=== PATIENT | male | born 1945 | race Caucasian/White ===

== ENCOUNTER → 2017-02-06 | Outpatient (CLI) | payer OTHER ==
[~2017-02-06] VITALS: Ht 177.8 cm; Wt 103.9 kg
[~2017-02-06] MED LIST: AMLH550 PO; ANT25 PO; ASPEC81 PO; CALC500C70 PO; CALCIUM+D3; EXCEDRINE; IBUP-103 PO; OMEG10007 PO; POTA10CA28 PO; SIMV20TA2 PO; ZFRODT4 SL; ZNTT/150 PO
[2017-02-06 12:34] VITALS: BP 129/85; PULSE 79; Ht 177.8 cm; Wt 103.9 kg
== END | disposition home or self-care (01) ==
LOC: C.NEUR 12:05
PROVIDERS: ATTEND Internal Medicine Pulmonary Disease
DX: R06.83 Snoring (principal); R53.83 Other fatigue; E03.9 Hypothyroidism, unspecified; I10 Essential (primary) hypertension

== ENCOUNTER → 2017-02-10 | Outpatient (CLI) | payer OTHER ==
--- NOTE | 2017-02-11 05:35 | PAP/PSG TECHNICIAN REPORT ---
[facility] [address] Landscape Photographer Polysomnogram Report Study name: None Report date: 02/11/2017 Study date: 02/10/2017 Referring Physician: Sid Parmar M.D. Name: MASTER BERNY Interpreting Physician: Sid Parmar M.D. Date of : 1945 Landscape Photographer: Bessie Flores RPSGT. Sex: Male Age: 71 StudyType: PSG Weight: 229 lbs Height: 71 years, Height 5' 10" Neck Circum:19inches BMI: 32.85 Medications: Aleve, Amiloride-HTCZ 5-50mg, ASA 81mg, Calcium, Exedrin, Fish Oil, HM Ibuprofen 200mg, Levoxul 88mcg, Potassium Chloride Er 20MEQ, Raniyidine HCl 150mg, Simvastatin 20mg Patient History Study started on room air with no ETCO2 monitoring in room #8. 71 yr old male here tonight for a diagnostic psg. He has EDS and he thinks that he may snore. He has gained weight since he quit smoking one year ago. His ESS=3/24. Neck circ=19inches. Parameters Monitored NPSG: E1-M2, E2-M1, Fp1-M2, Fp2-M1, F3-M2, F4-M2, F4-M1, C3-M2, C4-M2, C4-M1, O1-M2, O2-M2, O2-M1, T3-M2, T4-M1, P3-M2, P4-M1, CHIN1, CHIN2, HR, EKG, Legs, PFLOW, SNOR, FLOW, CFLOW, Tidal Volume, THOR, ABDO, SpO2, PLTH, CPRESS, ETCO2 Wave, ETCO2, pH Sleep Architecture Sleep Stages Time at Lights Off 9:18:53 PM STAGES Time (min.) TST (%) Time at Lights On 5:24:53 AM Wake 214.5 -- Total Recording Time (TRT) 486.50 min. N1 18.5 7 Total Sleep Period (TSP) 434.0 min. N2 163.0 60 Total Sleep Time (TST) 271.5min. N3 61.0 22 Awake Time 215.0 min. REM 29.0 11 Wake after Sleep Onset 178.5 min. Sleep Efficiency (SE) 56 % Sleep Onset Latency (CRISTINO) 36.0 min. Number of Stage 1 Shifts None Awakenings 19 Stage Changes 73 Number of REM periods 8 REM 29.0 11 REM Latency 113.0 min. NREM 242.5 89 Body Position Analysis Supine Right Left Side Prone Vertical Total Sleep Time (min.) 4.3 271.5 0.0 271.50 0.0 0.0 Total Sleep Time (%) 0% 100% 0% 100 0% N/A% Total Sleep Time REM (min.) 0.0 29.0 0.0 None 0.0 0.0 Total Sleep Time NREM (min.) 0.0 242.5 0.0 None 0.0 0.0 Intermittent Wake (min.) 4.3 210.2 0.0 None 0.0 0.0 Total Sleep Period (%) 0% None None None None None Arousals Myoclonus (PLM) * Events Count Index Events Count Index Spontaneous 8 2 Events Awake (PLMW) 155 43.4 Respiratory 4 1.1 Events Asleep w/ Arousal (PLMA) 6 1.3 PLM 6 1 Events Asleep w/o Arousal (PLMS) 31 6.9 Snoring 10 2 Total Asleep 37 8.2 Total 28 6 Total 192 24 Respiratory Analysis * CA OA MA CH H RERA Total Count 0 2 0 0 14 1 16 Index 0.0 0.4 0.0 0 3.1 0 3.8 Mean Duration 0.0 25.6 0.0 0.00 24.0 21.5 24.0 Longest Duration 0.0 36.5 0.0 0.00 0.0 21.5 53.9 Respiratory Event Summary Total Supine ~Supine Right Left Prone REM NREM Apneas Count 2 N/A 2 2 N/A N/A 1 1 Index 0.4 N/A 0 0.4 N/A N/A 2 0 Hypopneas (4% Desat) Count 14 N/A 14 14 N/A N/A 8 6 Index 3.1 N/A 3 3.1 N/A N/A 16.6 1.5 Apneas & All Hypopneas Count 16 N/A 16 16 N/A N/A 9 7 Index 3.5 N/A 4 4 N/A N/A 18.6 1.7 Respiratory Events (Livestock Feeder+All Hyp+RERA) Count 16 N/A 17 17 N/A N/A 9 7 Index 3.8 N/A 4 3.8 N/A N/A 18.6 2.0 Respiratory Related Arousal Count 4 N/A 5 5 N/A N/A 3 2 Index 1.1 N/A 1 1 N/A N/A 6 0 Snoring Analysis Supine Right Left Prone REM NREM Total Snore duration 72.1 min Snores count N/A 2,305 N/A N/A 174 2,131 2,305 Snore mean duration 1.9 Sec Snores index N/A 509 N/A N/A 360.0 527.3 509.4 TST with snoring (%) 26.6% Desaturation Event Summary: Minimum %SpO2 Event Count Mean/Min/Max Duration(sec.) Desaturation Index % Time In Bed > 90 44 32.3 / 9.0 / 60.0 12.3 44.3 86 - 90 18 25.5 / 12.3 / 50.0 4.0 55.6 81 - 85 0 N/A 0.0 0.1 76 - 80 0 N/A 0.0 0.0 71 - 75 0 N/A 0.0 0.0 66 - 70 0 N/A 0.0 0.0 61 - 65 0 N/A 0.0 0.0 56 - 60 0 N/A 0.0 0.0 51 - 55 0 N/A 0.0 0.0 < 50 0 N/A 0.0 0.0 Total REM NREM Awake <50% 0.0 min. 0.0 min. 0.0 min. 0.0 min. 51 - 60% 0.0 min. 0.0 min. 0.0 min. 0.0 min. 61 - 70% 0.0 min. 0.0 min. 0.0 min. 0.0 min. 71 - 80% 0.0 min. 0.0 min. 0.0 min. 0.0 min. 81 - 90% 269.7 min. 7.5 min. 159.0 min. 103.2 min. 91 - 100% 214.8 min. 21.5 min. 82.4 min. 111.0 min. Average 90 91 90 91 Minimum SpO2 84 85 87 84 Desaturation Event Index 5.9 18.6 3.5 7.0 # Desat. Events below 89% 28 7 8 13 Time(%) with Saturation below 89% 8.8 0.3 4.6 3.9 Time(min.) with Saturation below 89% 42.7 1.2 22.5 19.0 Time (mins) REM (mins) NREM (mins) % of TST SpO2 Below 90% 23 9 N14 32.4 SpO2 Below 88% 6 0 0 1 Heart Rate Analysis Min (bpm) Max (bpm) Average (bpm) Awake 60 94 72 NREM 63 127 70 REM 59 78 67 Overall 59 127 70 Supplemental O2 Values Minimum O2 level: None Value Start Time End Time Landscape Photographer Comments Mr. Grant slept in the right position. No cardiac arrhythmia noted. Some leg movements were noted. No bruxism noted. Snoring was noted and scored as a 4 on a scale of 1 through 5. (0=no snoring, 5=snoring loud enough to be heard through a closed door or down the [address] way) He did not use the restroom during the night. He stated that he slept a little worse than when at home. The final report will be interpreted and signed by a sleep physician. The completed physician report will then be placed in the patient medical record. Therapy (cm H2O) 0 TIB (min.) 486.0 TST (min.) 271.5 Sleep Onset (min.) 36.0 REM Onset From Sleep (min.) 113.0 Sleep Efficiency % 56 Wakefulness (%) 44 Wakefulness (min.) 215.0 NREM 1 (%) 7 NREM 1 (min.) 18.5 NREM 2 (%) 60 NREM 2 (min.) 163.0 NREM 3 (%) 22 NREM 3 (min.) 61.0 REM (%) 11 REM (min.) 29.0 # Arousals 28 Arousal Index 6 # Snore 2,305 Snore Index 509.4 AHI 3.5 AHI Supine N/A AHI Non-Supine 4 NREM AHI 1.7 REM AHI 18.6 RDI 3.8 # Obstructive Apnea 2 # Central Apnea 0 # Mixed Apnea 0 # Hypopneas 14 RERAs 1 Total Respiratory Events 21 Time Below SpO2 89% (min.) 23.7 Mean NREM SpO2 (%) 90 Mean REM SpO2 (%) 91 Mean Sleep SpO2 (%) 90 Min NREM SpO2 (%) 87 Min REM SpO2 (%) 85 Position Supine (min.) 4.3 Position Non-supine (min.) 271.5 LM Index Sleep 8.2 LM Index NREM 7.2 LM Index REM 16.6 Mean Heart Rate (bpm) 70 Min Heart Rate (bpm) 59
--- NOTE | 2017-02-13 00:26 | POLYSOMNOGRAPH REPORT ---
CLINICAL DATA: A 71-year-old male with BMI of 32.85, referred by myself and Dr. Wakefield, with excessive daytime sleepiness, snoring, and weight gain. His [place] sleepiness score is 3/24. SLEEP ARCHITECTURE: Total recording time was 486.5 minutes. Total sleep period was 434 minutes. Total sleep time was 271.5 minutes divided between 242.5 minutes of non-REM sleep and 29 minutes of REM sleep. Sleep onset latency was delayed at 30 minutes. REM latency was 113 minutes. Sleep efficiency was 56%, which is reduced. Wake after sleep onset was elevated at 178.5 minutes. Sleep consisted of stage N1 7%, stage N2 60%, stage N3 22%, and REM 11%. AROUSAL DATA: 28 arousals were recorded for an index of 6 per hour. PLM DATA: 37 limb movements during sleep were noted for an index of 8.2 per hour with arousal index of 1.3 per hour. RESPIRATORY DATA: There was no evidence of clinically significant sleep apnea seen. The AHI was 3.5. There were 2 obstructive apneic episodes. The longest apneic episode was 36.5 seconds. There were 14 hypopneic episodes with a mean duration of 24 seconds. OXIMETRY DATA: No significant hypoxemia was seen. Oxygen benja was 85%. Mean saturation was 90%. EKG: Heart rates ranged from 63-127 beats per minute. No arrhythmias were noted. WATER PROJECT ENGINEER'S COMMENTS: The patient slept in the right position. His snoring was severe, rated 4 on a scale of 1-5. He slept more poorly than he does at home. He had a long wake period through the middle of the night. IMPRESSION: No evidence of clinically significant sleep apnea/hypopnea, nocturnal hypoxemia or abnormal limb movements during sleep to explain this patient's symptoms. RECOMMENDATIONS: The patient should continue to practice good sleep hygiene. Weight loss may be of benefit. DAISY
--- NOTE | 2017-02-23 12:13 | CODING QUERY MEDICAL NECESSITY ---
SUPPORTING DIAGNOSIS NEEDED A supporting diagnosis is required for the test/procedure performed on this patient in order for us to be reimbursed by the patient's insurance. Please provide a supporting diagnosis for the following test/procedure listed below next to the test name along with your signature. *If there is no additional diagnosis for this patient that would support the following test/procedure please document that below next to the test/procedure. Test(s)/Procedure(s) that require a supporting diagnosis: * SLEEP STUDY DIAGNOSIS: Provider Signature: Date: Thank you Brenda Merrimac [employer] Once completed, please kindly fax back to [phone] For questions please call [phone]
== END | disposition home or self-care (01) ==
LOC: C.NEUR 20:00
PROVIDERS: ATTEND Internal Medicine Pulmonary Disease
DX: G47.9 Sleep disorder, unspecified (principal); E78.5 Hyperlipidemia, unspecified; R53.83 Other fatigue; R06.83 Snoring

== ENCOUNTER 2019-08-13 07:48 | Inpatient (IN) ==
--- OUTSIDE RECORDS SUMMARY | 2019-08-13 07:51 | External Medical Summary | Continuity of Care Document ---
:1945 Author Name Ally Hanson Address Unavailable Unavailable , Care Team Providers Name Role Phone Rich Scott PA-C Unavailable [email or web address] [place], UNKNOWN Unavailable Unavailable Assessments Assessed Problems:SnoringFatigueHypothyroidism Problems Hyperlipidemia (272.4) (E78.5) Hypertension (401.9) (I10) Hypothyroidism (244.9) (E03.9) Snoring (786.09) (R06.83) Fatigue (780.79) (R53.83) Allergies and Adverse Reactions No Known Drug Allergies (Allergy) Medications Fish Oil-Vitamin D 8192-5130 MG-UNIT Oral Capsule Refills: 0 Aspirin 81 MG TABS Refills: 0 Excedrin Extra Strength CAPS Refills: 0 Calcium 500 +D TABS Refills: 0 Aleve TABS Refills: 0 Simvastatin 20 MG Oral Tablet Refills: 0 raNITIdine HCl - 150 MG Oral Tablet Refills: 0 Potassium Chloride ER 20 MEQ Oral Tablet Extended Release Refills: 0 aMILoride-hydroCHLOROthiazide 5-50 MG Oral Tablet Refills: 0 HM Ibuprofen 200 MG Oral Capsule Refills: 0 Levoxyl 88 MCG Oral Tablet Refills: 0 Procedures History of thoracostomy Status: Complete d History of cystoscopy Status: Completed Immunizations Immunizations not documented Family History Unknown Family Member Family history of malignant neoplasm (V16.9) Status: Active Comments: Family History (Z80.9) Family history of hypertension (V17.49) Status: Active Comments: Family History (Z82.49) Social History - Smoking Status Ex-smoker Interventions Discussion/SummaryPt. is a 71 y.o. male referred to Dr. Parmar on 02/06/2017 by his PCP for evaluation of excessive daytime sleepiness, snoring, and weight gain. A sleep study completed on 02/10/2017 was negative for clinically significant sleep apnea/hypopnea, nocturnal hypoxemia, or abnormal limb movements. He does have a h/o hypothyroidism and his Levoxyl dose was recently increased but despite this he continues to have increased fatigue. I am asking him to make some lifestyle changes to include diet and exercise. He has gained close to 40 pounds in the past year since he quit smoking. He was also encouraged to continue a good sleep routine. I have recommended he f/u with his PCP to ensure that no other metabolicabnormalities could be contributing to his symptoms. Plan of Treatment Planned Observations Planned Goals not documented Results No Known Results Results not documented Encounters Appointment; Deepali Scott PA-C 16-Feb-2017 9:00 Encounter Diagnosis: Problem not documented
--- OUTSIDE RECORDS SUMMARY | 2019-08-13 07:52 | External Medical Summary | Continuity of Care Document ---
:1945 Author Name Ally Hanson Address Unavailable Unavailable , Care Team Providers Name Role Phone Rich Scott PA-C Unavailable [email or web address] PCP, UNKNOWN Unavailable Unavailable Assessments Assessed Problems:SnoringFatigueHypothyroidism Problems Hypertension (401.9) (I10) Hyperlipidemia (272.4) (E78.5) Fatigue (780.79) (R53.83) Snoring (786.09) (R06.83) Hypothyroidism (244.9) (E03.9) Allergies and Adverse Reactions No Known Drug Allergies (Allergy) Medications Levoxyl 88 MCG Oral Tablet Refills: 0 Potassium Chloride ER 20 MEQ Oral Tablet Extended Release Refills: 0 raNITIdine HCl - 150 MG Oral Tablet Refills: 0 Simvastatin 20 MG Oral Tablet Refills: 0 Aleve TABS Refills: 0 Calcium 500 +D TABS Refills: 0 Excedrin Extra Strength CAPS Refills: 0 Aspirin 81 MG TABS Refills: 0 Fish Oil-Vitamin D 4948-9822 MG-UNIT Oral Capsule Refills: 0 HM Ibuprofen 200 MG Oral Capsule Refills: 0 aMILoride-hydroCHLOROthiazide 5-50 MG Oral Tablet Refills: 0 Procedures History of [...]
[2019-08-13] MEDS ORDERED: ONDANSETRON INJ 2 MG/ML 2 ML VIAL IV STA (08:21)
[2019-08-13] MEDS ORDERED: MoRPHine SULFATE 4 MG/ML 1 ML CARP\\VIAL IV STA (08:21)
--- NOTE | 2019-08-13 08:24 | Emergency Department Note ---
ED Provider Note CHIEF COMPLAINT: Right ankle injury 2 hours ago HISTORY OF PRESENT ILLNESS: Patient is a 73-year-old male who presents the emergency department accompanied by his daughter for evaluation of right ankle pain after he fell roughly 2 hours ago. He slipped on some icy steps early this morning, landing on his right buttock and twisting his right ankle. He had immediate onset of pain. He attempted to bear weight but it was painful. He notes increased discomfort with movement of the ankle and weightbearing. Swelling and bruising are noted. He was medicated with ibuprofen for discomfort. He rates his pain a 10/10. He normally ambulates with a cane secondary to a remote history of a TBI. Patient also notes that he noticed erythema in the right foot yesterday. He had a small wound on the right heel that he has been treating with ointment and bandages. No fever or chills. He denies any calf pain or swelling. No numbness or tingling. He denies any foot or knee pain. REVIEW OF SYSTEMS: Review of systems as per HPI. All other systems reviewed were negative. At least 6 systems reviewed. PMH: Electronic medical records are reviewed and summarized as above/below. See Problem List. SOCIAL HISTORY: Patient lives at home. Retired. PHYSICAL EXAM: Vital Signs: Reviewed Nurses' notes. MENTAL STATUS: Well-appearing 73-year-old male who is awake and alert and in no acute distress. HEART: Regular rate and rhythm. LUNGS: Clear to auscultation. MUSCULOSKELETAL: Examination of the right lower extremity notes an obvious deformity of the right ankle. He is swollen and ecchymotic over the medial malleolus, with superficial abrasions noted. There is slight tenting of the skin medially. He is tender over the lateral malleolus. There is no pain over the proximal fibular head. No pain over the fifth metatarsal. There is a small cut on the right heel posteriorly. There is some diffuse erythema of the dorsum of the foot, but no overt warmth or cellulitic changes. Sensation light touch is intact over the right lower extremity. Dorsalis pedis and posterior tibialis pulses are easily palpable. Capillary refill is brisk. EMERGENCY DEPARTMENT COURSE: The patient was seen and assessed as above. Old records were reviewed. IV lock was initiated. Patient was medicated with morphine and Zofran for pain. Right ankle x-rays were obtained noting a displaced bimalleolar fracture. X-ray findings were reviewed with the patient and his family members. Patient history and presentation were discussed with Dr Laurel Carlson. Close reduction was indicated. Verbal consent was obtained from the patient for closed reduction of the right ankle. Conscious sedation was administered by Dr. Carlson, please refer to his separate dictation for further information. Close reduction was performed successfully, and the patient was splinted. Post reduction x-rays note appropriate anatomic alignment of the fracture. Consultation was placed with Dr. Du at the request of the family. He will admit the patient to his service for surgical intervention. Differential diagnosis included fracture, sprain, dislocation, contusion, ligamentous injury, among others. PROCEDURE NOTE: Diagnosis: Right fracture dislocation When adequate conscious sedation was obtained, the right calf was grasped and stabilized, longitudinal traction was applied to the ankle, with lateral pressure. Ankle was successfully reduced, tension on the medial malleolus was visibly improved. Xeroform gauze was applied to the abrasions on the medial malleolus and the heel wound, then short leg posterior and sugar tong splint was applied in the usual fashion. Splint placement was verified by me and was satisfactory. Patient remained neurovascularly intact. Impression & Plan Closed fracture dislocation of right ankle Past Med/Surg History Medical History Dyslipidemia (Chronic) GERD (gastroesophageal reflux disease) (Chronic) Hypertension (Chronic) Hypothyroidism (Chronic) TBI (traumatic brain injury) Social History Preferred Language: Azeri Communication Ability: Effective Furniture Repair Technician Required: No Beliefs That Will Affect Care: None marital status: / Current Living Situation: Alone current occupational status: retired Other Information That Helps Us Care for You: No Feels Safe at Home: Yes Safety Concerns: Feels Safe At This Time Smoking Status: Former smoker Hx Alcohol Use: No Hx Substance Use: No Results & Data Vital Signs Vital Signs - 24 hr 08/13/19 07:51 08/13/19 08:30 08/13/19 08:34 Temperature 36.8 C Temperature Source Oral Pulse Rate 106 H 101 H 100 H Pulse Rate from SpO2 Sensor 101 H 101 H Respiratory Rate 18 26 H 29 H Respiratory Effort / Characteristics Non-Labored Respiratory Depth Normal Respiratory Pattern Regular Blood Pressure 131/85 144/102 H Blood Pressure Mean 100 110 Blood Pressure Position Sitting Pulse Oximetry 98 96 97 Oxygen Delivery Method Room Air Oxygen Flow Rate Sepsis Recent Fever Within 48 Hours No Sepsis Action Taken by Nursing No Action Required End-Tidal CO2 08/13/19 09:00 08/13/19 09:01 08/13/19 09:30 Temperature Temperature Source Pulse Rate 93 H 95 H 87 Pulse Rate from SpO2 Sensor 93 H 96 H 90 Respiratory Rate 17 18 Respiratory Effort / Characteristics Respiratory Depth Respiratory Pattern Blood Pressure 140/88 136/94 Blood Pressure Mean 110 112 Blood Pressure Position Pulse Oximetry 95 94 94 Oxygen Delivery Method Oxygen Flow Rate Sepsis Recent Fever Within 48 Hours Sepsis Action Taken by Nursing End-Tidal CO2 35 08/13/19 09:31 08/13/19 09:35 08/13/19 09:40 Temperature Temperature Source Pulse Rate 90 85 85 Pulse Rate from SpO2 Sensor 90 84 85 Respiratory Rate Respiratory Effort / Characteristics Respiratory Depth Respiratory Pattern Blood Pressure Blood Pressure Mean Blood Pressure Position Pulse Oximetry 94 93 98 Oxygen Delivery Method Oxygen Flow Rate Sepsis Recent Fever Within 48 Hours Sepsis Action Taken by Nursing End-Tidal CO2 34 34 25 08/13/19 09:45 08/13/19 09:50 08/13/19 09:55 Temperature Temperature Source Pulse Rate 84 85 83 Pulse Rate from SpO2 Sensor 86 84 85 Respiratory Rate Respiratory Effort / Characteristics Respiratory Depth Respiratory Pattern Blood Pressure 158/102 H Blood Pressure Mean 114 Blood Pressure Position Pulse Oximetry 97 96 98 Oxygen Delivery Method Oxygen Flow Rate Sepsis Recent Fever Within 48 Hours Sepsis Action Taken by Nursing End-Tidal CO2 32 33 33 08/13/19 09:56 08/13/19 09:59 08/13/19 10:00 Temperature Temperature Source Pulse Rate 79 77 84 Pulse Rate from SpO2 Sensor 79 77 84 Respiratory Rate Respiratory Effort / Characteristics Respiratory Depth Respiratory Pattern Blood Pressure 171/104 H 126/87 Blood Pressure Mean 118 96 Blood Pressure Position Pulse Oximetry 98 100 100 Oxygen Delivery Method Non-rebreather Non-rebreather Non-rebreather Oxygen Flow Rate 11 11 11 Sepsis Recent Fever Within 48 Hours Sepsis Action Taken by Nursing End-Tidal CO2 31 32 35 08/13/19 10:01 08/13/19 10:02 08/13/19 10:05 Temperature Temperature Source Pulse Rate 88 81 86 Pulse Rate from SpO2 Sensor 87 82 Respiratory Rate Respiratory Effort / Characteristics Respiratory Depth Respiratory Pattern Blood Pressure 148/98 H 142/93 H Blood Pressure Mean 107 99 Blood Pressure Position Pulse Oximetry 100 100 Oxygen Delivery Method Non-rebreather Non-rebreather Oxygen Flow Rate 11 11 Sepsis Recent Fever Within 48 Hours Sepsis Action Taken by Nursing End-Tidal CO2 31 31 22 08/13/19 10:06 08/13/19 10:10 08/13/19 10:11 Temperature Temperature Source Pulse Rate 84 86 86 Pulse Rate from SpO2 Sensor 84 81 87 Respiratory Rate Respiratory Effort / Characteristics Respiratory Depth Respiratory Pattern Blood Pressure 141/94 H Blood Pressure Mean 107 Blood Pressure Position Pulse Oximetry 100 94 93 Oxygen Delivery Method Non-rebreather Oxygen Flow Rate 11 Sepsis Recent Fever Within 48 Hours Sepsis Action Taken by Nursing End-Tidal CO2 31 33 31 08/13/19 10:13 08/13/19 10:15 08/13/19 10:16 Temperature Temperature Source Pulse Rate 85 79 80 Pulse Rate from SpO2 Sensor 85 80 81 Respiratory Rate Respiratory Effort / Characteristics Respiratory Depth Respiratory Pattern Blood Pressure 144/90 H 137/90 Blood Pressure Mean 101 103 Blood Pressure Position Pulse Oximetry 96 96 95 Oxygen Delivery Method Oxygen Flow Rate Sepsis Recent Fever Within 48 Hours Sepsis Action Taken by Nursing End-Tidal CO2 34 34 33 08/13/19 10:30 08/13/19 10:45 08/13/19 11:00 Temperature Temperature Source Pulse Rate 75 75 79 Pulse Rate from SpO2 Sensor 75 77 79 Respiratory Rate Respiratory Effort / Characteristics Respiratory Depth Respiratory Pattern Blood Pressure 152/102 H 142/96 H 146/99 H Blood Pressure Mean 125 100 121 Blood Pressure Position Pulse Oximetry 97 96 97 Oxygen Delivery Method Oxygen Flow Rate Sepsis Recent Fever Within 48 Hours Sepsis Action Taken by Nursing End-Tidal CO2 33 35 35 Home Medications Current Medication List: was personally reviewed by me Administered Medications Discontinued Medications Morphine Sulfate (Morphine Sulfate) 4 mg IV NOW STA Stop: 08/13/19 08:22 Last Admin: 08/13/19 08:36 Dose: 4 mg Documented by: [id number] Ondansetron HCl (Zofran) 4 mg IV NOW STA Stop: 08/13/19 08:22 Last Admin: 08/13/19 08:33 Dose: 4 mg Documented by: [id number] Propofol (Diprivan) Confirm Administered Dose 200 mg IV .STK-MED ONE Stop: 08/13/19 09:11 Last Admin: 08/13/19 10:10 Dose: 50 mg Documented by: [id number] Cosigned by: [id number] Imaging Data Attestation: I personally reviewed and interpreted this imaging study as follows: Radiologist's Impression: XR ankle RT 2V HISTORY: 73 years-old Male EVAL FRACTURE acute right ankle pain status post fall COMPARISON: None TECHNIQUE: 2 views of the right ankle FINDINGS: Acute fracture or dislocation of the ankle. This includes an acute obliquely oriented fracture of the distal fibular metadiaphysis extending to the level of the talar dome. This demonstrates displacement of 1 cortex width medially with the fractured shaft extending into the posterior aspect of the distal tibiofibular syndesmosis with 21 degrees apex medial angulation and 2.0 cm volar displacement. Pathologic widening of the distal tibiofibular syndesmosis with abnormal widening of the medial clear space, 1.8 cm. Probable acute fracture of the medial malleolus with fractured and displaced posterior malleolus fracture. Talus appears intact. Large Achilles enthesophyte of the calcaneus. Moderate to extensive soft tissue swelling with moderate joint effusion. IMPRESSION: Acute angulated and displaced fracture dislocation of the ankle as above with soft tissue swelling and joint effusion. XR ankle RT 2V CLINICAL HISTORY: POST REDUCTION COMPARISON: 08/13/2019 DISCUSSION: There is been interval reduction of the previously described dislocation. A distal fibular fracture is visualized. The fine bony details obscured by overlying fiberglass cast. There is Achilles insertional spur. IMPRESSION: Interval reduction of the previously identified fracture dislocation with application of a fiberglass cast. Blood Pressure Blood Pressure Findings: Elevated blood pressure Blood Pressure Disposition: elevated BP felt to be situational Discharge Plan Visit Data *Final* Discharge Date/Time: 08/13/19 11:36 Chief Complaint: Ankle Pain Stated Complaint: FELL DOWN STEPS-RIGHT ANKLE ED Provider: Da Carlson ED Midlevel Provider: Denver Booth Discharge Problem: Closed fracture dislocation of right ankle Patient Disposition: Admitted As Inpatient Discharge Instructions Interventions: ED Discharge Assessment Last Done: 08/13/19 11:36 Discharge Problem: Closed fracture dislocation of right ankle Qualifiers: Encounter type: initial encounter Qualified Code(s): S82.891A - Other fracture of right lower leg, initial encounter for closed fracture
--- NOTE | 2019-08-13 08:40 | XRay Report ---
XR ankle RT 2V HISTORY: 73 years-old Male EVAL FRACTURE acute right ankle pain status post fall COMPARISON: None TECHNIQUE: 2 views of the right ankle FINDINGS: Acute fracture or dislocation of the ankle. This includes an acute obliquely oriented fracture of the distal fibular metadiaphysis extending to the level of the talar dome. This demonstrates displacemen t of 1 cortex width medially with the fractured shaft extending into the posterior aspect of the dist al tibiofibular syndesmosis with 21 degrees apex medial angulation and 2.0 cm volar displacement. Pat hologic widening of the distal tibiofibular syndesmosis with abnormal widening of the medial clear sp donald, 1.8 cm. Probable acute fracture of the medial malleolus with fractured and displaced posterior m alleolus fracture. Talus appears intact. Large Achilles enthesophyte of the calcaneus. Moderate to ex tensive soft tissue swelling with moderate joint effusion. IMPRESSION: Acute angulated and displaced fracture dislocation of the ankle as above with soft tissue swelling and joint effusion. ACT 112: Negative or not required by law. The above report was generated using voice recognition software. It may contain grammatical, syntax o r spelling errors. Electronically signed by: Edward Heath M.D. 08/13/2019 8:39 AM
[2019-08-13] MEDS ORDERED: PROPOFOL IV EMULSION 10 MG/ML 20 ML VIAL IV ONE (09:10)
--- NOTE | 2019-08-13 10:33 | XRay Report ---
XR ankle RT 2V CLINICAL HISTORY: POST REDUCTION COMPARISON: 08/13/2019 DISCUSSION: There is been interval reduction of the previously described dislocation. A distal fibula r fracture is visualized. The fine bony details obscured by overlying fiberglass cast. There is Achil les insertional spur. IMPRESSION: Interval reduction of the previously identified fracture dislocation with application of a fiberglass cast. ACT 112: Negative or not required by law. Electronically signed by: Eric Danielle M.D. 08/13/2019 10:32 AM
[2019-08-13] MEDS ORDERED: TRAMADOL HCL 50 MG TABLET PO PRN (11:58)
--- NOTE | 2019-08-13 12:46 | History & Physical Report ---
Date of Service August 13, 2019 Assessment & Plan (1) Closed fracture dislocation of right ankle: Continue plan of care. Patient will undergo right ankle ORIF and syndesmotic fixation tomorrow afternoon by Dr. Du. He will be NPO after midnight. He can continue Percocet as needed for pain in the meantime. Continue icing and elevation above heart level. Patient will remain non-weight bearing. History of Present Illness Anthony is a pleasant 73 year old male who presents today with right ankle dislocation fracture. Patient's daughter is a nurse here at [facility] and provided some of the history. Patient has a history of hyp othyroidism, GERD, dyslipidemia, and HTN, which are all well controlled with medication. Patient states he slipped on ice while going down [employer] this morning (08/13/19) around 6am. Reports he forcefully twisted his ankle and fell on his buttock. After the fall, patient experienced immediate pain and was unable to bear weight. He went to [facility] ER for further evaluation. He had x-rays ordered which revealed a trimalleolar fracture with dislocation. Patient's ankle was successfully reduced in the ER and he was placed in a splint. 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 Patient normally ambulates with a cane due to this, and has been following with his neurologist, Dr. Fitzgerald. Patient denies previous ankle injuries. Patient reports that his pain has been well controlled with Percocet since the fall. Patient also reports noticing a small wound on his right heel, yesterday. He has been treating this with ointment and bandages. Patient denies any numbness or tingling. He is currently taking one aspirin daily. He is aware that surgery will likely be the next step. Primary Care Provider: Kwaku De Anda MD Allergies Allergy/AdvReac Type Severity Reaction Status Date / Time No Known Allergies Allergy Intermediate Verified 08/13/19 09:24 Home Medications Home Medications Medication Instructions Recorded Confirmed Type amiloride-hydrochlorothiazide 0.5 tab PO BID 08/13/19 08/13/19 History calcium carbonate-vitamin D3 1 cap PO BID 08/13/19 08/13/19 History [Calcium 600 + D(3)] famotidine [Pepcid AC] 10 mg PO QAM 08/13/19 08/13/19 History ibuprofen 200 mg PO Q6H PRN 08/13/19 08/13/19 History levothyroxine 88 mcg PO QAM 08/13/19 08/13/19 History multivitamin 1 tab PO QAM 08/13/19 08/13/19 History omega 2-zbg-gsj-fish oil [Fish Oil] 1 cap PO QAM 08/13/19 08/13/19 History potassium chloride 10 meq PO TID 08/13/19 08/13/19 History simvastatin 20 mg PO HS 08/13/19 08/13/19 History Past Med/Surg History Medical History Dyslipidemia (Chronic) GERD (gastroesophageal reflux disease) (Chronic) Hypertension (Chronic) Hypothyroidism (Chronic) TBI (traumatic brain injury) Social History Preferred Language: Malay Communication Ability: Effective 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 Beliefs That Will Affect Care: None marital status: / Current Living Situation: Alone current occupational status: retired Other Information That Helps Us Care for You: No Feels Safe at Home: Yes Safety Concerns: Feels Safe At This Time Smoking Status: Former smoker Hx Alcohol Use: No Hx Substance Use: No Review of Systems Constitutional: no fever, no chills and no problem reported Eyes: as per Subjective / HPI; no problem reported Ear, Nose, Mouth, Throat: as per Subjective / HPI; no problem reported Respiratory: as per Subjective / HPI; no problem reported Cardiovascular: no edema and no problem reported Gastrointestinal: no nausea, no vomiting and no problem reported Genitourinary: no problem reported Musculoskeletal: as per Subjective / HPI Integumentary: as per Subjective / HPI; no problem reported Neurologic: no tingling, no paresthesia and no problem reported Psychiatric: no problem reported Endocrine: as per Subjective / HPI Hematologic / Lymphatic: as per Subjective / HPI Allergy / Immunological: no problem reported Physical Exam Musculoskeletal: Patient is WDWN, in no acute distress, laying comfortably in his bed. A+Ox3. Right lower extremity: Splint remained in place for exam. Positive EHL and tib ant. Neurovascularly intact. Capillary refill <2 seconds. 2+ pules of bilateral lower extremities. Full AROM at hip and knee. Results & Data Vital Signs (Past 12 Hours) Vital Signs Temp Pulse Resp BP BP Pulse Ox 08/13/19 12:08 36.6 C 20 157/94 H 98 08/13/19 11:15 77 139/95 96 08/13/19 11:01 76 99 08/13/19 11:00 79 146/99 H 97 08/13/19 10:45 75 142/96 H 96 08/13/19 10:30 75 152/102 H 97 08/13/19 10:16 80 95 08/13/19 10:15 79 137/90 96 08/13/19 10:13 85 144/90 H 96 08/13/19 10:11 86 93 08/13/19 10:10 86 141/94 H 94 08/13/19 10:06 84 100 08/13/19 10:05 86 142/93 H 08/13/19 10:02 81 148/98 H 100 08/13/19 10:01 88 100 08/13/19 10:00 84 126/87 100 08/13/19 09:59 77 171/104 H 100 08/13/19 09:56 79 98 08/13/19 09:55 83 158/102 H 98 08/13/19 09:50 85 96 08/13/19 09:45 84 97 08/13/19 09:40 85 98 08/13/19 09:35 85 93 08/13/19 09:31 90 94 08/13/19 09:30 87 136/94 94 08/13/19 09:01 95 H 18 94 08/13/19 09:00 93 H 17 140/88 95 08/13/19 08:34 100 H 29 H 97 08/13/19 08:30 101 H 26 H 144/102 H 96 08/13/19 07:51 36.8 C 106 H 18 131/85 98 Code Status & VTE Plan VTE Prophylaxis Plan VTE Prophylaxis will be ordered: Yes Supervising Physician Co-Signing Physician Notes ATTENDING NOTE: Franck Nair PA-C assisted in caring for this patient. I agree with his note. I confirmed the history and performed the physical exam myself. The assessment and plan is my own. PG Care Time/CCT Total # of Minutes Spent Total Time Spent with Patient: Total time spent is greater than 50% in coordination of care (as documented) at patient's floor/unit and/or counseling patient: Coding Level of Care Code 85143 Initial Inpt Care Lvl 3 Diagnoses Closed fracture dislocation of right ankle S82.891A Encounter type: initial encounter (1) Closed fracture dislocation of right ankle Encounter type: initial encounter Qualified Code(s): S82.891A - Other fracture of right lower leg, initial encounter for closed fracture
[2019-08-13] MEDS: D5W AND 1/2NSS 1,000 ML IV SCH (12:55)
[2019-08-13] MEDS: POTASSIUM CHLORIDE 10 MEQ TABCR PO SCH ×2 (13:49→20:25)
--- NOTE | 2019-08-13 14:32 | Emergency Department Note ---
Entered by Micki Alvarez acting as a scribe for ED Visit Note COURSE: 0836: 4 mg Morphine administered. 0957: Conscious sedation started. 0958: 30 mg Propofol administered. 1000: 20 mg Propofol administered 1008: Conscious sedation finished. EM PROCEDURE NOTE- PROCEDURAL SEDATION Sedation Level: Moderate PRIOR TO THE PROCEDURE THE FOLLOWING INFORMATION WAS VERIFIED: Procedure/Indication: Fracture dislocation reduction Verify Correct Patient: Yes Verify Correct Site: Yes Verify Correct Procedure: Yes NPO status does not pertain as ankle needs to be reduced as there is tenting of the skin Airway Assessment: Normal anatomy Difficult facial/neck anatomy Procedure sedation was discussed with the patient. Risks and benefits were explained with the possible risks including but not limited to hypotension, allergic reaction, vomiting, pneumonia, loss of respiratory effort, cardiac arrest, and emergence reaction. PROCEDURE NOTE: Preparation for the sedation procedure included: gambling monitor, IV access, pulse oxymetry, ETCO2 monitor, oxygen, suction and ambu bag. Sedation was accomplished using propofol 50mg IV. I provided anesthesia care for this patient for 11 minutes. Timber Setter/Lifter Driver: Da Carlson DO. Complication(s) during the procedure: None Mental status post procedure: Response to verbal stimuli - Appropriate Disposition See nurses record for monitoring/vital signs Alert prior to discharge Patient was a 73-year-old male with a fracture and partial dislocation right ankle. Pulses were intact. He was sedated by myself : Closed fracture dislocation of right ankle Qualifiers: Encounter type: initial encounter Qualified Code(s): S82.891A - Other fracture of right lower leg, initial encounter for closed fracture The scribe's documentation has been prepared under my direction and personally reviewed by me in its entirety. I confirm that the note above accurately reflects all work, treatment, procedures, and medical decision making performed by me.
[2019-08-13] MEDS: OXYCODONE/ACETAMINOPHEN 5mg/325mg TAB PO PRN ×2 (14:43→19:17)
--- NOTE | 2019-08-13 15:10 | Emergency Department Note ---
Pre Sedation Assessment Vital Signs Temp Pulse Resp BP BP Pulse Ox 08/13/19 12:08 36.6 C 20 157/94 H 98 08/13/19 11:15 77 139/95 96 08/13/19 11:01 76 99 08/13/19 11:00 79 146/99 H 97 08/13/19 10:45 75 142/96 H 96 08/13/19 10:30 75 152/102 H 97 08/13/19 10:16 80 95 08/13/19 10:15 79 137/90 96 08/13/19 10:13 85 144/90 H 96 08/13/19 10:11 86 93 08/13/19 10:10 86 141/94 H 94 08/13/19 10:06 84 100 08/13/19 10:05 86 142/93 H 08/13/19 10:02 81 148/98 H 100 08/13/19 10:01 88 100 08/13/19 10:00 84 126/87 100 08/13/19 09:59 77 171/104 H 100 08/13/19 09:56 79 98 08/13/19 09:55 83 158/102 H 98 08/13/19 09:50 85 96 08/13/19 09:45 84 97 08/13/19 09:40 85 98 08/13/19 09:35 85 93 08/13/19 09:31 90 94 08/13/19 09:30 87 136/94 94 08/13/19 09:01 95 H 18 94 08/13/19 09:00 93 H 17 140/88 95 08/13/19 08:34 100 H 29 H 97 08/13/19 08:30 101 H 26 H 144/102 H 96 08/13/19 07:51 36.8 C 106 H 18 131/85 98 Pre-Sedation Airway Assessment Smoking Status: Former smoker Short, Thick Neck: No Thyromental Distance: > or= 3.5 Finger Breadths Oral Cavity: + Dentures Mallampati Class: I ASA: ASA1 NPO Status Date of Last Intake of Fluids: 08/13/19 Time of Last Intake of Fluids: 06:00 Last Oral Intake of Fluids Comment: coffee Date of Last Intake of Solid Food: 08/12/19 Notes The planned sedation has been discussed with the patient. Informed Consent was obtained. I have identified the patient, determined the appropriateness of sedation and have assessed the patient immediately prior to the procedure. All medicine(s) and interventions are by my order. : Closed fracture dislocation of right ankle Qualifiers: Encounter type: initial encounter Qualified Code(s): S82.891A - Other fracture of right lower leg, initial encounter for closed fracture
--- NOTE | 2019-08-13 15:11 | Emergency Department Note ---
Post Sedation Assessment Vital Signs Temp Pulse Resp BP BP Pulse Ox 08/13/19 12:08 36.6 C 20 157/94 H 98 08/13/19 11:15 77 139/95 96 08/13/19 11:01 76 99 08/13/19 11:00 79 146/99 H 97 08/13/19 10:45 75 142/96 H 96 08/13/19 10:30 75 152/102 H 97 08/13/19 10:16 80 95 08/13/19 10:15 79 137/90 96 08/13/19 10:13 85 144/90 H 96 08/13/19 10:11 86 93 08/13/19 10:10 86 141/94 H 94 08/13/19 10:06 84 100 08/13/19 10:05 86 142/93 H 08/13/19 10:02 81 148/98 H 100 08/13/19 10:01 88 100 08/13/19 10:00 84 126/87 100 08/13/19 09:59 77 171/104 H 100 08/13/19 09:56 79 98 08/13/19 09:55 83 158/102 H 98 08/13/19 09:50 85 96 08/13/19 09:45 84 97 08/13/19 09:40 85 98 08/13/19 09:35 85 93 08/13/19 09:31 90 94 08/13/19 09:30 87 136/94 94 08/13/19 09:01 95 H 18 94 08/13/19 09:00 93 H 17 140/88 95 08/13/19 08:34 100 H 29 H 97 08/13/19 08:30 101 H 26 H 144/102 H 96 08/13/19 07:51 36.8 C 106 H 18 131/85 98 Recovery Score Activity: Moves 4 extremities Respiration: Deep Breath/Cough Circulation: +/-20% PreAnes Value Consciousness: Fully Awake Oxygen Saturation: > 92% On Room Air Post Anesthesia Score: 10 Discharge Sedation Unexpected Event: None Post Sedation Plan On clinical assessment, the patient appears to have tolerated the sedation without complications. Patient is recovering as anticipated. Patient will continue to be monitored by nursing and may be discharged when sedation discharge criteria are met per below protocol. Upon Completions of procedure up to 15 minutes continue every 5 minute vital signs and the P.A.R. score; then discharge to a Phase I or Fast Track to Phase I I per the following guidelines: * Discharge Patient to appropriate Phase II area if PAR is 8 or greater or return to pre- procedure baseline. The post - procedure orders will be as directed. * If PAR score is less than 8 or not return to pre-procedure baseline then patient will follow Phase I monitoring till PAR is reached for Phase II. The Phase I may be done in procedure room or may call to secure a Phase I area. * If naloxone or flumazenil are used for reversal, hold in Phase I for continued monitoring from when last reversal dose was given for a minimum of 60 minutes or longer pending the nurse and/or physician discretion of patient condition before discharge to Phase II. Please call the Sedation Physician to re-evaluate and complete post-note for discharge to Phase II area. Do NOT discharge from procedure sedation or Phase 1 until post- sedation evaluation note is complete by procedure /sedation MD Sedation Discharge Instructions to be given to the patient at discharge to home. Sedation Data Sedation Times Sedation Start Date: 08/13/19 Sedation Start Time: :57 Procedure Times Procedure Start Time:: 57 Procedure End Time: 10:07 : Closed fracture dislocation of right ankle Qualifiers: Encounter type: initial encounter Qualified Code(s): S82.891A - Other fracture of right lower leg, initial encounter for closed fracture
[2019-08-13] MEDS: AMILORIDE/HCTZ 5/50MG TAB PO SCH (17:27)
--- NOTE | 2019-08-13 17:47 | XRay Report ---
XR chest 1V portable CLINICAL HISTORY: 73 years-old Male presenting with pre-op evaluation. TECHNIQUE: Portable upright AP view of the chest was obtained. COMPARISON: 10/28/2009. FINDINGS: Cardiomediastinal silhouette normal. No focal opacity. No large effusion or pneumothorax. Osseous str uctures normal. Upper abdomen normal. IMPRESSION: 1. No acute cardiopulmonary disease. ACT 112: Negative or not required by law. Electronically signed by: Javi Maldonado M.D. 08/13/2019 5:46 PM
[2019-08-13 17:49] LABS: Basophils # (auto) 0.03 K/uL (0-0.2); Basophils % (auto) 0.3 %; Eosinophils % (auto) 3.7 %; Hematocrit (blood only) 37.5 % (42-52); Hemoglobin 12.4 g/dL (14.0-18.0); Immature Granulocytes # (auto) 0.03 K/uL (0.00-0.02); Immature Granulocytes % (auto) 0.3 %; Lymphocytes # (auto) 2.83 K/uL (1.2-3.4); Mean Corpuscular Hgb Conc 33.1 g/dL (32-36); Mean Corpuscular Volume 87.6 fL (80-100); Mean Platelet Volume 8.6 fL (7.4-10.4); Monocytes # (auto) 1.12 K/uL (0.11-0.59); Monocytes % (auto) 10.3 %; Neutrophils # (auto) 6.47 K/uL (1.4-6.5); Neutrophils % (auto) 59.4 %; Platelet Count 237 K/uL (130-400); RDW Coefficient of Variation 13.6 % (11.5-14.5); RDW Standard Deviation 43.3 fL (36.4-46.3); Red Blood Count 4.28 M/uL (4.7-6.1); White Blood Count 10.88 K/uL (4.8-10.8)
[2019-08-13 17:57] LABS: Prothrombin Time 10.9 Seconds (9.0-12.0)
[2019-08-13 18:05] LABS: BUN Creatinine Ratio 9.6 (10-20); Calcium 8.5 mg/dl (8.5-10.1); Est GFR (Non-African American) 66.5; Potassium 3.6 mmol/L (3.5-5.1)
[2019-08-13] MEDS: SIMVASTATIN 20 MG TAB PO SCH (20:25)
[2019-08-13] MEDS ORDERED: AMILORIDE/HCTZ 5/50MG TAB PO SCH (21:00)
[2019-08-14] MEDS: D5W AND 1/2NSS 1,000 ML IV SCH ×2 (01:51→16:23)
[2019-08-14] MEDS: OXYCODONE/ACETAMINOPHEN 5mg/325mg TAB PO PRN ×3 (01:55→20:05)
[2019-08-14] MEDS: LEVOTHYROXINE SODIUM 88 MCG TABLET PO SCH (05:37)
--- NOTE | 2019-08-14 06:52 | Orthopedic Progress Note ---
Date of Service August 14, 2019 Assessment & Plan (1) Closed fracture dislocation of right ankle: We will proceed with an open reduction internal fixation of the right ankle later today. He and his family understand the risks, benefits, and alternatives to procedure and elected to proceed. Questions were answered at bedside today. Postoperatively he will be placed in a trauma splint and kept in the hospital mostly for pain control and placement issues. Present on Admission?: Yes Subjective Anthony was seen and examined at bedside this morning. Overall he is doing fairly well. Is not in too much pain in the right ankle. The right ankle is elevated. He is n.p.o. for a later surgery this morning. He has no complaints. Physical Exam Musculoskeletal: On physical examination of his right ankle, the right ankle is elevated. He has active motion of all of his toes. A trauma splint is in place. Results & Data ([facility]) Vital Signs (Past 12 Hours) Vital Signs Temp Pulse Resp BP Pulse Ox 08/13/19 23:21 36.8 C 79 16 126/78 97 PG Care Time/CCT Total # of Minutes Spent Total Time Spent with Patient: Total time spent is greater than 50% in coordination of care (as documented) at patient's floor/unit and/or counseling patient: Coding Level of Care Code None Diagnoses Closed fracture dislocation of right ankle S82.891A Encounter type: initial encounter (1) Closed fracture dislocation of right ankle Encounter type: initial encounter Qualified Code(s): S82.891A - Other fracture of right lower leg, initial encounter for closed fracture
[2019-08-14] MEDS: AMILORIDE/HCTZ 5/50MG TAB PO SCH ×2 (07:11→17:38)
[2019-08-14] MEDS: MULTIVITAMIN TAB PO SCH (07:11)
[2019-08-14] MEDS: FAMOTIDINE 10 MG TABLET PO SCH (07:11)
[2019-08-14] MEDS: POTASSIUM CHLORIDE 10 MEQ TABCR PO SCH ×3 (07:12→20:05)
[2019-08-14] MEDS ORDERED: ONDANSETRON INJ 2 MG/ML 2 ML VIAL ONE (12:07)
[2019-08-14] MEDS ORDERED: LIDOCAINE HCL 2% 2 ML VIAL/AMP(20MG/ML) INFIL ONE (12:07)
[2019-08-14] MEDS ORDERED: MIDAZOLAM HCL 1 MG/ML 2ML VIAL ONE ×2 (12:07→13:14)
[2019-08-14] MEDS ORDERED: PROPOFOL IV EMULSION 10 MG/ML 20 ML VIAL IV ONE (12:07)
[2019-08-14] MEDS ORDERED: fentaNYL citrate 100 MCG/2 ML VIAL ONE (12:07)
[2019-08-14] MEDS ORDERED: BACITRACIN INJ 50,000 UNIT VIAL ONE (12:42)
[2019-08-14] MEDS ORDERED: BUPIVACAINE/EPINEPHRINE 0.5% MPF 1:200,000 10 ML VIAL ONE (12:44)
[2019-08-14] MEDS ORDERED: BUPIVACAINE/EPINEPHRINE 0.25% 1:200,000 30 ML VIAL ONE (12:52)
[2019-08-14] MEDS ORDERED: ePHEDrine sulfate 50 MG/ML AMP IV PRN (12:53)
[2019-08-14] MEDS ORDERED: HYDROmorphone INJ 2 MG/ML SYR/VIAL IV PRN (12:53)
[2019-08-14] MEDS ORDERED: fentaNYL citrate 100 MCG/2 ML VIAL IV PRN (12:53)
[2019-08-14] MEDS ORDERED: ATROPINE SULFATE 0.1 MG/ML 10ML SYR IV PRN (12:53)
[2019-08-14] MEDS ORDERED: ONDANSETRON INJ 2 MG/ML 2 ML VIAL IV PRN (12:53)
--- NOTE | 2019-08-14 12:54 | Anesthesiology Consultation ---
Date of Service August 14, 2019 Assessment & Plan ASA ASA3 Proposed Anesthesia Anesthesia Type: General Regional Regional Laterality: Right Site: Popliteal and Adductor Canal Risk / Benefits Reviewed With: PT / POA / Parent / Guardian, Accepts Plan and Informed Consent Obtained History Surgery Operation Date: 08/14/19 07:00 Proposed Procedures p Right Ankle Open Reduction Internal Fixation - Marc Du, Height/Weight Height: 5 ft 10 in Weight: 107.7 kg Allergies Allergy/AdvReac Type Severity Reaction Status Date / Time No Known Allergies Allergy Intermediate Verified 08/13/19 09:24 Medications Home Medications Medication Instructions Recorded Confirmed Last Taken amiloride-hydrochlorothiazide 0.5 tab PO BID 08/13/19 08/13/19 08/12/19 calcium carbonate-vitamin D3 1 cap PO BID 08/13/19 08/13/19 08/12/19 [Calcium 600 + D(3)] famotidine [Pepcid AC] 10 mg PO QAM 08/13/19 08/13/19 08/13/19 ibuprofen 200 mg PO Q6H PRN 08/13/19 08/13/19 08/13/19 07:00 400 mg levothyroxine 88 mcg PO QAM 08/13/19 08/13/19 08/13/19 multivitamin 1 tab PO QAM 08/13/19 08/13/19 08/12/19 omega 9-clx-zly-fish oil [Fish Oil] 1 cap PO QAM 08/13/19 08/13/19 08/12/19 potassium chloride 10 meq PO TID 08/13/19 08/13/19 08/12/19 simvastatin 20 mg PO HS 08/13/19 08/13/19 08/12/19 Active Medications Generic Name Dose Route Start Last Admin Trade Name Freq PRN Reason Stop Dose Admin Amiloride/HCTZ 0.5 tab 08/13/19 17:00 08/14/19 07:11 Moduretic 5/50mg PO 09/12/19 16:59 0.5 tab BID17 MILAGROS Administration Famotidine 10 mg 08/14/19 09:00 08/14/19 07:11 Pepcid PO 09/13/19 08:59 10 mg QAM MILAGORS Administration Dextrose/Sodium Chloride 1,000 mls @ 75 mls/hr 08/13/19 11:58 08/14/19 01:51 D5w And 1/2nss IV 09/12/19 11:57 75 mls/hr .[id number] MILAGROS Administration Levothyroxine Sodium 88 mcg 08/14/19 06:30 08/14/19 05:37 Synthroid PO 09/13/19 06:29 88 mcg DAILYBB MILAGROS Administration Multivitamins 1 tab 08/14/19 09:00 08/14/19 07:11 Multivitamin Tab PO 09/13/19 08:59 1 tab QAM MILAGROS Administration Oxycodone/Acetaminophen 1 - 2 tab 08/13/19 11:58 08/14/19 07:12 Percocet 5mg/325mg PO 08/27/19 11:57 2 tab Q4H PRN Administration Severe Pain Potassium Chloride 10 meq 08/13/19 14:00 08/14/19 07:12 Klor-Con M10 PO 09/12/19 13:59 10 meq TID MILAGROS Administration Simvastatin 20 mg 08/13/19 21:00 08/13/19 20:25 Zocor PO 09/12/19 20:59 20 mg HS MILAGROS Administration NPO Date Last Intake of Fluids: 08/13/19 Time Last Intake of Fluids: 18:00 Last Intake of Fluids Comment: allowed sips, chips and meds Date Last Intake of Solids: 08/13/19 Time Last Intake of Solids: 18:00 Past Medical History Medical History Dyslipidemia (Chronic) GERD (gastroesophageal reflux disease) (Chronic) Hypertension (Chronic) Hypothyroidism (Chronic) TBI (traumatic brain injury) Exercise / Class Metabolic Activity II 4-5 Yardwork/Stairs/Walk up hill Past Anesthesia History No Hx of Anesthesia Complications and No Family Hx of Anesthesia Complications History of PONV No Hx of PONV and No Hx of Motion Sickness Social History Smoking Status: Former smoker Hx Alcohol Use: No Hx Substance Use: No substance use type: does not use Review of Systems denies fever/cough/ colds/ chest pain/ SOB/ ERIS Constitutional: no fever and no chills Respiratory: no cough and no dyspnea denies ERIS Cardiovascular: no chest pain and no dyspnea on exertion Physical Exam Vital Signs Last Vital Signs Temp 36.8 C 08/14/19 12:39 Pulse 83 08/14/19 12:39 Resp 18 08/14/19 12:39 BP 151/88 H 08/14/19 12:39 Pulse Ox 96 08/14/19 12:39 ENMT Mouth: + edentulous; no TMJ abnormality and no dentition abnormality Thyromental Distance: > or= 3.5 Finger Breadths Mallampati Class: II Neck neck extension not limited Respiratory normal respiratory effort; no respiratory distress Auscultation: lungs clear to auscultation bilaterally Cardiovascular Rate/Rhythm: regular rate and regular rhythm Neurologic moves all extremities Psychiatric Orientation: alert and oriented x 3 Testing Laboratory Results 08/13/19 17:34 08/13/19 17:34 PT 10.9 Seconds (9.0-12.0) 08/13/19 17:34 INR 1.0 (0.9-1.1) 08/13/19 17:34
[2019-08-14] MEDS ORDERED: CEFAZOLIN 1,000 MG/7.5 ML IV PUSH IV ONE (13:27)
[2019-08-14] MEDS ORDERED: CEFAZOLIN 1000MG 1,000 MG/7.5 ML SYR IV ONE ×2 (13:28→14:44)
[2019-08-14] MEDS ORDERED: PHENYLEPHRINE 100MCG/ML 5ML SYR ONE (14:29)
--- NOTE | 2019-08-14 14:38 | Electrocardiogram Report ---
Test Reason : Blood Pressure : / mmHG Vent. Rate : 081 BPM Atrial Rate : 081 BPM P-R Int : 134 ms QRS Dur : 080 ms QT Int : 370 ms P-R-T Axes : -33 021 014 degrees QTc Int : 429 ms Unusual P axis, possible ectopic atrial rhythm Low voltage QRS Abnormal ECG When compared with ECG of 25-AUG-2010 06:52, Ectopic atrial rhythm has replaced Sinus rhythm Confirmed by Alejo Ramírez ([id number]) on 08/14/2019 2:38:21 PM Referred By: REFERRED SELF Confirmed By:Alejo Ramírez
[2019-08-14] MEDS ORDERED: CEFAZOLIN 250 MG/ML 1 GM VIAL ONE (14:44)
--- NOTE | 2019-08-14 15:02 | Operative Report ---
PG Post Operative Report Pre & Post Diagnosis Operation Date: 08/14/19 07:00 Pre-Op Diagnosis: Bimalleolar equivalent right Ankle Fracture Post-Op Diagnosis: Bimalleolar equivalent right Ankle Fracture I identified the patient and participated in the time-out.: Yes Procedure Operation Date: 08/14/19 07:00 Actual Procedures p Right Ankle Open Reduction Internal Fixation right bimalleolar equivalent ankle fracture (Right) - Marc Du DO Surgeon Marc Du DO Metal Tile Setter Marc Cross PAC Estimated Blood Loss 10 Findings Consistent with Post-Op Diagnosis Specimens none Complications none Disposition Disposition: Recovery Room Indications Anthony is a pleasant 73-year-old male who fell yesterday morning twisting his right ankle. He came to the emergency room and radiographs demonstrated a bimalleolar equivalent, unstable right ankle fracture. His ankle was reduced in the emergency room and he was admitted to the hospital for definitive fixation the following day. Description of Procedure On August 14, 2019 Anthony arrived from his hospital room to the preoperative holding area. The right ankle was identified and signed. He was given a popliteal block and a preoperative antibiotic. He was taken back to the operating room and laid on the table in the supine position. He was put under general anesthesia. The right ankle was prepped and draped in sterile fashion. A timeout was done. The patient and the operative extremity was properly identified. On preoperative examination under fluoroscopy I did not see any fractures of the medial malleolus. The ankle was stressed and there was no evidence of fracture of the medial side. Decision was made just to fix the fibula. A longitudinal incision was made directly over the fracture. Dissection was taken down through the fascia with care not to disrupt the intermediate branch of the peroneal nerve. The fracture was then identified and cleaned out. The fracture was then reduced with a clamp. A Synthes 5 hole distal fibular locking plate was then placed. A locking screw was placed distally and a compression screw was placed proximally. Fluoroscopic images showed anatomic alignment. The clamp was then removed. Multiple distal locking screws were then placed and multiple proximal locking screws were then placed. All the screws were tightened. Final fluoroscopic images showed anatomic alignment. The wound was then irrigated. The deep fascia was closed with a running 2-0 Vicryl suture. Skin was closed with 2-0 Vicryl and kevin. He was then placed in a trauma splint. He was then extubated and transferred to [facility]. He was taken to the postanesthesia care unit in stable condition. He tolerated the procedure well. Marc Cross PA-C, was present for the entire procedure. He was critical for patient positioning, prepping, draping, retraction exposure, wound closure and application of sterile dressing. I attest to the content of the Intraoperative Record and any orders documented therein. Any exceptions are noted below.
--- NOTE | 2019-08-14 15:06 | Fluoroscopy Report ---
FL ankle RT min 3V RTN CLINICAL HISTORY: RT ORIF ANKLE COMPARISON STUDY: 08/13/2019 FLUOROSCOPY TIME: 49 seconds. NUMBER OF FLUOROSCOPIC IMAGES: 2 FINDINGS: 2 intraoperative fluoroscopic spot images demonstrate internal fixation of a distal fibular fracture with a lateral metallic plate and multiple screws. IMPRESSION: Internally fixated distal fibular fracture. ACT 112: Negative or not required by law. Electronically signed by: Eric Danielle M.D. 08/14/2019 3:04 PM
[2019-08-14] MEDS ORDERED: HYDROmorphone INJ 0.5 MG/0.5 ML SYR IV PRN (15:20)
--- NOTE | 2019-08-14 15:49 | Anesthesiology Progress Note ---
Date of Service August 14, 2019 Anesthesia Post Procedure Vital Signs Vital Signs: Temp Pulse Pulse Resp BP BP Pulse Ox 08/14/19 15:45 36.6 C 93 H 21 143/89 H 94 08/14/19 15:35 86 13 153/95 H 100 08/14/19 15:25 88 18 152/94 H 100 08/14/19 15:15 36.4 C L 98 H 19 163/92 H 97 08/14/19 12:39 36.8 C 83 18 151/88 H 96 08/14/19 07:22 36.8 C 77 18 126/90 98 08/13/19 23:21 36.8 C 79 16 126/78 97 08/13/19 16:04 36.8 C 76 17 115/78 99 Pain Intensity Right Ankle: Pain Intensity: 2 Transfer of Care Handoff Completed per policy Notes Mental Status: alert / awake / arousable and participated in evaluation Patient Amnestic to Procedure: Yes Nausea / Vomiting: adequately controlled Pain: adequately controlled Airway Patency, RR, SpO2: stable & adequate BP & HR: stable & adequate Hydration State: stable & adequate Anesthetic Complications: no major complications apparent and Pt Satisfied with anesthetic care
[2019-08-14] MEDS ORDERED: KETOROLAC TROMETHAMINE 15 MG/ML VIAL IV PRN (16:02)
[2019-08-14] MEDS: SIMVASTATIN 20 MG TAB PO SCH (20:05)
[2019-08-14] MEDS: CEFAZOLIN 2000MG 2,000 MG/15 ML SYR IV SCH (20:26)
[2019-08-15] MEDS: OXYCODONE/ACETAMINOPHEN 5mg/325mg TAB PO PRN ×2 (00:33→13:02)
[2019-08-15] MEDS: CEFAZOLIN 2000MG 2,000 MG/15 ML SYR IV SCH (05:47)
[2019-08-15] MEDS: LEVOTHYROXINE SODIUM 88 MCG TABLET PO SCH (05:48)
[2019-08-15] MEDS: FAMOTIDINE 10 MG TABLET PO SCH (08:04)
--- NOTE | 2019-08-15 08:19 | Anesthesiology Progress Note ---
Date of Service August 15, 2019 Anesthesia Post Procedure Vital Signs Vital Signs: Temp Pulse Pulse Resp BP BP Pulse Ox 08/15/19 07:37 36.9 C 95 H 19 128/70 93 08/15/19 07:34 37.2 C 84 16 142/79 H 91 08/15/19 03:49 37.2 C 84 16 142/79 H 91 08/14/19 22:54 36.6 C 93 H 16 130/79 95 08/14/19 18:55 37.2 C 102 H 18 162/76 H 95 08/14/19 18:05 36.6 C 93 H 20 129/84 96 08/14/19 17:02 82 16 144/83 H 98 08/14/19 16:34 36.7 C 86 16 159/95 H 97 08/14/19 16:02 37.4 C 92 H 20 143/93 H 94 08/14/19 15:45 36.6 C 93 H 21 143/89 H 94 08/14/19 15:35 86 13 153/95 H 100 08/14/19 15:25 88 18 152/94 H 100 08/14/19 15:15 36.4 C L 98 H 19 163/92 H 97 08/14/19 12:39 36.8 C 83 18 151/88 H 96 Pain Intensity Right Ankle: Pain Intensity: 2 Notes Mental Status: alert / awake / arousable and participated in evaluation Patient Amnestic to Procedure: Yes Nausea / Vomiting: adequately controlled Pain: adequately controlled Airway Patency, RR, SpO2: stable & adequate BP & HR: stable & adequate Hydration State: stable & adequate Anesthetic Complications: no major complications apparent and Pt Satisfied with anesthetic care
[2019-08-15] MEDS: AMILORIDE/HCTZ 5/50MG TAB PO SCH (08:38)
[2019-08-15] MEDS: POTASSIUM CHLORIDE 10 MEQ TABCR PO SCH (08:38)
[2019-08-15] MEDS: MULTIVITAMIN TAB PO SCH (08:38)
[2019-08-15] MEDS ORDERED: ASPIRIN 81 MG ECTAB PO SCH (09:00)
--- NOTE | 2019-08-15 13:04 | Orthopedic Progress Note ---
Date of Service August 15, 2019 Assessment & Plan (1) Status post ORIF of fracture of ankle: Overall he is doing very well. Is not having too much pain in the right ankle. He is stable for discharge to home later today. He will be seen by physical therapy today for ambulation and range of motion exercises. He is to be nonweightbearing on the right ankle. I am going to keep him on aspirin 81 mg twice a day for DVT prophylaxis. He will follow-up with orthopedics in 2 weeks. Present on Admission?: Yes Subjective Anthony was seen and examined at bedside today. Overall he is doing very well. Is not having much pain in the right ankle. He is looking forward to going home. He has no complaints. Physical Exam Musculoskeletal: On physical examination of the right ankle, the trauma splint is in place. His right ankle is elevated. He does have active motion of his toes. No signs of compartment syndrome. Results & Data ([facility]) Vital Signs (Past 12 Hours) Vital Signs Temp Pulse Pulse Resp BP BP Pulse Ox 08/15/19 11:25 37.0 C 95 H 18 152/86 H 93 08/15/19 07:37 36.9 C 95 H 19 128/70 93 08/15/19 07:34 37.2 C 84 16 142/79 H 91 08/15/19 03:49 37.2 C 84 16 142/79 H 91 PG Care Time/CCT Total # of Minutes Spent Total Time Spent with Patient: Total time spent is greater than 50% in coor dination of care (as documented) at patient's floor/unit and/or counseling patient: Coding Level of Care Code None Diagnoses Status post ORIF of fracture of ankle Z98.890; Z87.81
--- NOTE | 2019-08-15 13:06 | Discharge Summary ---
Date of Service August 15, 2019 Principal Diagnosis ORIF of the right ankle Discharge Data Allergies Allergy/AdvReac Type Severity Reaction Status Date / Time No Known Allergies Allergy Intermediate Verified 08/13/19 09:24 Consultations 08/14/19 16:02 Consult Case Management - Discharge Planning Routine Procedures Performed Operation Date: 08/14/19 07:00 Actual Procedures p Right Ankle Open Reduction Internal Fixation(Right) - Marc Du DO Ordered Studies 08/14/19 13:00 FL ankle RT min 3V RTN Routine FL fluoroscopy <1hr Routine 08/14/19 13:43 US - OR guided needle placemen Routine Hospital Course (1) Status post ORIF of fracture of ankle: On August 13, 2019 Anhtony arrived at [facility] with right a nkle pain. X-rays and clinical examination were diagnostic for an unstable fracture of the right ankle. His right ankle was reduced and he was placed in a trauma splint. He was then admitted to the orthopedic service for definitive fixation. After discussions with him and his family, he elected proceed with an open reduction internal fixation of the right ankle. The following day he underwent an open reduction internal fixation of the right ankle without complication. He had a general anesthetic and a right popliteal block. Postoperatively he was placed back in a trauma splint and transferred back to the general orthopedic floors. He was placed on aspirin 81 mg twice a day for DVT prophylaxis. His hospital course was uneventful. On postop day #1 his pain was well controlled. He was able to participate well with physical therapy and able to abide by the nonweightbearing guidelines. He was then discharged home. He will follow-up with orthopedics in 2 weeks. Total Time Total Time Spent Total Time Spent (In Minutes): 20 Discharge Plan Discharge Items Patient Disposition: Home - Self-Care Reason For Visit: RT ANKLE FRACTURE Discharge Diagnosis: Open reduction internal fixation of the right ankle Activity: As commented below Non-emergency contact: Surgeon Call non-emergency contact if: your wound has increased redness and your wound has increased drainage Follow-up/Referrals: Kwaku De Anda MD [Primary Care Provider] - Diet: Regular Addtl Attending Provider Instructions: ORTHOPEDIC INSTRUCTIONS Activity Recommendations: Nonweightbearing on the right ankle for 6 weeks Medications: Percocet as needed for pain Aspirin 81 mg twice a day for 6 weeks Resume all previous medications Dressing Care: Leave the splint clean and dry until follow-up in the office. Showering: Do not get the splint wet until follow-up in 2 weeks. Things To Watch For: 1. Drainage from the incision site that occurs more than one week after your surgery. 2. Increased redness at the incision site. 3. Fever above 102 degrees Fahrenheit. 4. Unusual chest pain or shortness of breath. 5. Call [facility] orthopedics at with any of the above problems Follow-Up Visit: Follow-up with Dr. Du's team 2 weeks after your day of surgery. Please call to make an appointment or be sure your rehab facility has made one. If you have any questions call Pending Studies at Discharge: No Stand-Alone Forms: My [facility], Opioid Pain Management, Smoking Cessation Medications and DC Order Prescriptions: New oxycodone-acetaminophen [Percocet] 5-325 mg Tablet 1 tab PO Q4H PRN (Reason: pain) Qty: 30 RF: 0 aspirin 81 mg Tablet,Delayed Release (Dr/Ec) 81 mg PO QAM 42 Days Qty: 0 RF: 0 Continued multivitamin Tablet 1 tab PO QAM RF: 0 amiloride-hydrochlorothiazide 5-50 mg tablet 0.5 tab PO BID RF: 0 famotidine [Pepcid AC] 10 mg Tablet 10 mg PO QAM RF: 0 levothyroxine 88 mcg tablet 88 mcg PO QAM RF: 0 potassium chloride 20 mEq tablet,ER particles/crystals 10 meq PO TID RF: 0 simvastatin 20 mg tablet 20 mg PO HS RF: 0 ibuprofen 200 mg Tablet 200 mg PO Q6H PRN (Reason: Pain) RF: 0 Calcium 600 + D(3) 600 mg calcium- 200 unit Capsule 1 cap PO BID RF: 0 omega 9-mod-mar-fish oil [Fish Oil] 1,000 mg (120 mg-180 mg) Capsule 1 cap PO QAM RF: 0 Discharge Orders: Discharge Order (Routine); Ordered 08/15/19 Ordered By: Marc Garcia/Other Patient Handouts: Surgery Prevent DVT After Admission Data Admit Date/Time: 08/13/19 14:23 Attending Provider: Marc Du Admit Provider: Marc Du Primary Care Provider: Kwaku De Anda Other Interventions: Discharge Summary Assessment (RN) Last Done: 08/15/19 07:34 Coding Level of Care Code D/C Day Management <30 mins Diagnoses Status post ORIF of fracture of ankle Z98.890; Z87.81
== END 2019-08-15 13:14 | disposition home health service (06) | DRG 494 ==
LOC: 3E 07:48 → ED 07:48 → 3E 11:36